=== PATIENT | female | born 1945 | race Two or more races ===

== ENCOUNTER 2023-08-20 13:38 | Inpatient (IN) | payer MEDICARE ==
[~2023-08-20] VITALS: Ht 154.9 cm; Wt 63.6 kg
[2023-08-20 15:34] LABS: HEMATOCRIT. 32.5 % (36.0-48.0); HEMOGLOBIN. 11.1 g/dL (12.0-16.0); LYMPHOCYTES % 8.1 % (20.0-50.0); MEAN CORPUSCULAR HEMOGLOBIN 29.8 pg (28.0-32.0); MEAN CORPUSCULAR VOLUME 87.7 fL (81.0-99.0); MEAN PLATELET VOLUME 8.9 fl (7.4-10.4); NEUTROPHILS % 79.9 % (40.0-76.0); PLATELET 88 x1000/uL (130-400); RED BLOOD CELL COUNT 3.71 mill/uL (4.2-5.4); WHITE BLOOD COUNT 5.6 x1000/uL (4.5-11.0)
[2023-08-20 16:04] LABS: ACETAMINOPHEN < 2 ug/mL (10-30); ALANINE AMINOTRANSFERASE 33 IU/L (10-49); ALBUMIN 4.3 g/dL (3.2-4.8); ASPARTATE AMINOTRANSFERASE 50 IU/L (<34); BILIRUBIN TOTAL 1.7 mg/dL (0.1-1.0); CALCIUM 9.1 mg/dL (8.7-10.4); CARBON DIOXIDE 27 mEq/L (21-32); CHLORIDE 102 mEq/L (98-107); CREATINE KINASE 1127 IU/L (34-145); CREATININE 0.8 mg/dL (0.6-1.0); GLUCOSE 149 mg/dL (70-105); POTASSIUM 3.2 mEq/L (3.5-5.1); PROTEIN TOTAL 6.7 g/dL (6.0-8.3); SODIUM 139 mEq/L (136-145); UREA NITROGEN BLOOD 15 mg/dL (9-23)
[2023-08-20] MEDS ORDERED: ACETAMINOPHEN 325MG TABLET PO ONE (16:15)
[2023-08-20 16:37] LABS: ETHANOL BLOOD < 10 mg/dL (<10)
[2023-08-20] MEDS ORDERED: SODIUM CHLORIDE 0.9% 1,000 ML IV ONE (17:15)
[2023-08-20] MEDS ORDERED: CEFTRIAXONE 1GM PREMIX 50 ML IV ONE (18:45)
[2023-08-20] MEDS ORDERED: ACETAMINOPHEN 325MG TABLET ONE (18:49)
[2023-08-21] VITALS (7 sets, daily range): BP systolic 117–144; BP diastolic 41–68; PULSE 82–96; RESP 23–35; TEMP 98.3–100.7
[2023-08-21] MEDS ORDERED: KETOROLAC 30MG/ML VIAL IV ONE (00:15)
[2023-08-21] MEDS ORDERED: ONDANSETRON HCL 4MG/2ML INJ IV ONE (00:15)
[2023-08-21] MEDS ORDERED: ACETAMINOPHEN 325MG TABLET PO PRN (00:30)
[2023-08-21] MEDS ORDERED: ONDANSETRON HCL 4MG/2ML INJ IV PRN (00:30)
[2023-08-21] MEDS ORDERED: DIPHENHYDRAMINE 50MG/ML VIAL IV PRN (00:30)
[2023-08-21] MEDS ORDERED: POTASSIUM CHLORIDE 20MEQ TABLET SR PO NR (00:30)
[2023-08-21] MEDS ORDERED: CEFTRIAXONE 2GM/50ML (ADDEASE) 50 ML IV SCH (02:00)
[2023-08-21] MEDS: SODIUM CHLORIDE 0.9% 1,000 ML IV SCH ×3 (02:41→16:30)
[2023-08-21 03:19] LABS: AMMONIA 22 uMol/L (<32)
[2023-08-21] MEDS: CEFTRIAXONE 2 G in DEXTROSE 5% WATER 50 ML IV SCH (06:24)
[2023-08-21] MEDS ORDERED: METF-873 PO (07:33)
[2023-08-21 07:39] LABS: HEMATOCRIT. 30.1 % (36.0-48.0); HEMOGLOBIN. 10.1 g/dL (12.0-16.0); MEAN CORPUSCULAR HEMOGLOBIN 29.8 pg (28.0-32.0); MEAN CORPUSCULAR HGB CONC 33.7 g/dL (31.0-37.0); MEAN CORPUSCULAR VOLUME 88.6 fL (81.0-99.0); PLATELET 77 x1000/uL (130-400); RED CELL DISTRIBUTION WIDTH 13.9 % (11.6-14.6)
[2023-08-21 07:53] LABS: DIFFERENTIAL COMMENT 1
[2023-08-21 08:05] LABS: ALANINE AMINOTRANSFERASE 34 IU/L (10-49); ALBUMIN 3.8 g/dL (3.2-4.8); ASPARTATE AMINOTRANSFERASE 53 IU/L (<34); BILIRUBIN TOTAL 0.9 mg/dL (0.1-1.0); CALCIUM 8.3 mg/dL (8.7-10.4); CARBON DIOXIDE 26 mEq/L (21-32); CHLORIDE 106 mEq/L (98-107); CREATININE 0.7 mg/dL (0.6-1.0); GLUCOSE 142 mg/dL (70-105); POTASSIUM 4.2 mEq/L (3.5-5.1); PROTEIN TOTAL 5.9 g/dL (6.0-8.3); SODIUM 140 mEq/L (136-145); UREA NITROGEN BLOOD 14 mg/dL (9-23)
[2023-08-21 08:41] LABS: HEPATITIS B SURFACE ANTIGEN NEGATIVE (Negative); HEPATITIS C AB NON REACTIVE (Neg) (Negative)
[2023-08-21] MEDS: ACETAMINOPHEN 325MG TABLET PO PRN ×2 (10:05→16:30)
[2023-08-21] MEDS ORDERED: AZITHROMYCIN 500 MG in DEXT 5% WATER 250 ML IV SCH (15:00)
[2023-08-21 17:35] LABS: CLARITY URINE CLEAR (CLEAR); COLOR URINE YELLOW (YELLOW); GLUCOSE URINE NEGATIVE (NEGATIVE); KETONES URINE NEGATIVE (NEGATIVE); PROTEIN URINE 2+ (NEGATIVE); SPECIFIC GRAVITY URINE >=1.030 (1.005-1.030)
[2023-08-21 17:36] LABS: LEUKOCYTE ESTERASE URINE NEGATIVE (NEGATIVE); NITRITE URINE NEGATIVE (NEGATIVE); OCCULT BLOOD URINE 2+ (NEGATIVE); UROBILINOGEN URINE 0.2 E.U./dL (0.2-1.0)
[2023-08-21 17:43] LABS: BACTERIA URINE 2+; SQUAMOUS EPITHELIAL CELL URINE FEW /lpf (RARE/1+)
[2023-08-21 17:45] LABS: *AMPHETAMINES SCREEN URINE NEGATIVE (NEGATIVE); *BARBITURATES SCREEN URINE NEGATIVE (NEGATIVE); *BENZODIAZEPINES SCREEN URINE NEGATIVE (NEGATIVE); *COCAINE SCREEN URINE NEGATIVE (NEGATIVE); CANNABINOID URINE SCREEN NEGATIVE (NEGATIVE); ECSTASY MDMA SCREEN URINE NEGATIVE (NEGATIVE); METHADONE URINE SCREEN Neg (NEGATIVE); OPIATES URINE SCREEN NEGATIVE (NEGATIVE); PHENCYCLIDINE URINE SCREEN NEGATIVE (NEGATIVE); WBC URINE 0-2 /hpf (0-2)
[2023-08-22] VITALS (8 sets, daily range): BP systolic 110–155; BP diastolic 60–106; PULSE 75–115; RESP 20–30; TEMP 97.6–103.3; O2SAT 94–98
[2023-08-22] MEDS: SODIUM CHLORIDE 0.9% 1,000 ML IV SCH ×3 (00:15→14:46)
[2023-08-22] MEDS: ACETAMINOPHEN 325MG TABLET PO PRN ×2 (00:16→05:36)
[2023-08-22] MEDS: CEFTRIAXONE 2 G in DEXTROSE 5% WATER 50 ML IV SCH (05:44)
[2023-08-22] MEDS: AZITHROMYCIN 500 MG TABLET PO SCH (09:10)
[2023-08-22 12:01] LABS: PLATELET ESTIMATE DECREASED
[2023-08-22] MEDS ORDERED: IPRATROPIUM/ALBUTEROL 0.5-3(2.5)MG/3ML NEB HHN PRN (14:15)
[2023-08-22 14:24] LABS: BG BASE EXCESS -0.7 mmol/L (-2.0-2.0); BG CARBOXYHEMOGLOBIN 0.4 % (0.5-1.5); BG HCO3 ACT 22.3 mmol/L (22.0-26.0); BG METHEMOGLOBIN 0.1 % (0.0-1.5); BG OXYHEMOGLOBIN 95.5 % (94.0-97.0); BG PCO2 31.6 mmHg (35.0-45.0); BG PH 7.466 (7.350-7.450); BG PO2 78.1 mmHg (75.0-100.0); BG SAMPLE SITE RIGHT RADIAL; BG TOTAL HEMOGLOBIN 12.1 g/dL (12.0-18.0); BG VENT MODE NASAL CANNULA
[2023-08-22] MEDS ORDERED: METHYLPREDNISOLONE SOD SUCC 125MG/2ML (ACT-O-VIAL) IV NR (14:30)
[2023-08-22] MEDS: IPRATROPIUM/ALBUTEROL 0.5-3(2.5)MG/3ML NEB HHN SCH (21:12)
[2023-08-22] MEDS: METHYLPREDNISOLONE SOD SUCC 125MG/2ML (ACT-O-VIAL) IV SCH (22:02)
[2023-08-23] VITALS (7 sets, daily range): BP systolic 100–129; BP diastolic 72–94; PULSE 71–106; RESP 16–23; TEMP 97–99.2
[2023-08-23] MEDS: IPRATROPIUM/ALBUTEROL 0.5-3(2.5)MG/3ML NEB HHN SCH (02:00)
[2023-08-23] MEDS: CEFTRIAXONE 2 G in DEXTROSE 5% WATER 50 ML IV SCH (05:22)
[2023-08-23] MEDS: METHYLPREDNISOLONE SOD SUCC 125MG/2ML (ACT-O-VIAL) IV SCH ×2 (05:22→13:43)
[2023-08-23 06:00] LABS: HEMATOCRIT. 27.5 % (36.0-48.0); HEMOGLOBIN. 9.6 g/dL (12.0-16.0); MEAN CORPUSCULAR HEMOGLOBIN 29.6 pg (28.0-32.0); MEAN CORPUSCULAR VOLUME 84.7 fL (81.0-99.0); MEAN PLATELET VOLUME 9.2 fl (7.4-10.4); PLATELET 77 x1000/uL (130-400); RED BLOOD CELL COUNT 3.25 mill/uL (4.2-5.4); RED CELL DISTRIBUTION WIDTH 13.7 % (11.6-14.6); WHITE BLOOD COUNT 2.9 x1000/uL (4.5-11.0)
[2023-08-23 07:16] LABS: DIFFERENTIAL COMMENT 1
[2023-08-23] MEDS ORDERED: ENOXAPARIN 30MG/0.3ML SYR SUBCUT SCH (09:00)
[2023-08-23] MEDS: SODIUM CHLORIDE 0.9% 1,000 ML IV SCH (09:00)
[2023-08-23] MEDS: AZITHROMYCIN 500 MG TABLET PO SCH (09:08)
[2023-08-23 09:50] LABS: ALANINE AMINOTRANSFERASE 83 IU/L (10-49); ALBUMIN 3.6 g/dL (3.2-4.8); ASPARTATE AMINOTRANSFERASE 106 IU/L (<34); BILIRUBIN TOTAL 0.4 mg/dL (0.1-1.0); CALCIUM 8.5 mg/dL (8.7-10.4); CARBON DIOXIDE 28 mEq/L (21-32); CHLORIDE 98 mEq/L (98-107); CREATININE 0.7 mg/dL (0.6-1.0); GLUCOSE 259 mg/dL (70-105); PHOSPHORUS 1.8 mg/dL (2.5-4.9); POTASSIUM 3.4 mEq/L (3.5-5.1); PROTEIN TOTAL 5.2 g/dL (6.0-8.3); SODIUM 135 mEq/L (136-145); UREA NITROGEN BLOOD 11 mg/dL (9-23)
[2023-08-23] MEDS ORDERED: DEXTROSE 50% WATER 50ML SYRINGE IV PRN (13:00)
[2023-08-23] MEDS ORDERED: POTASSIUM CHLORIDE 20MEQ TABLET SR PO NR (14:00)
[2023-08-23] MEDS: ACETAMINOPHEN 325MG TABLET PO PRN (14:42)
[2023-08-23] MEDS ORDERED: POTASSIUM PHOS,M-BASIC-D-BASIC 30 MMOL in DEXT 5% WATER 500 ML IV NR (15:00)
[2023-08-23] MEDS ORDERED: MAGNESIUM 1 G PREMIX 100 ML IV NR (15:00)
[2023-08-23 17:15] LABS: PLATELET ESTIMATE DECREASED
[2023-08-23] MEDS: INSULIN LISPRO 100 UNITS/ML SUBCUT SCH ×2 (18:13→21:00)
[2023-08-23] MEDS: BLOOD SUGAR DIAGNOSTIC STRIP TEST SCH (21:53)
[2023-08-23] MEDS: METHYLPREDNISOLONE SOD SUCC 40MG/ML (ACT-O-VIAL) IV SCH (23:45)
[2023-08-24] VITALS: BP 106/75; PULSE 74; RESP 16; TEMP 98.6
[2023-08-24 04:00] VITALS: BP 121/77; PULSE 75; RESP 19; TEMP 98.6
[2023-08-24] MEDS: CEFTRIAXONE 2 G in DEXTROSE 5% WATER 50 ML IV SCH (06:29)
[2023-08-24] MEDS: METHYLPREDNISOLONE SOD SUCC 40MG/ML (ACT-O-VIAL) IV SCH ×2 (06:29→20:35)
[2023-08-24] MEDS: BLOOD SUGAR DIAGNOSTIC STRIP TEST SCH ×4 (06:42→20:35)
[2023-08-24] MEDS: INSULIN LISPRO 100 UNITS/ML SUBCUT SCH ×4 (07:20→20:38)
[2023-08-24 08:00] VITALS: BP 115/54; PULSE 83; RESP 20; TEMP 99.2
[2023-08-24 08:04] LABS: CALCIUM 8.4 mg/dL (8.7-10.4); CARBON DIOXIDE 26 mEq/L (21-32); CHLORIDE 103 mEq/L (98-107); CREATININE 0.5 mg/dL (0.6-1.0); GLUCOSE 195 mg/dL (70-105); PHOSPHORUS 2.2 mg/dL (2.5-4.9); POTASSIUM 4.3 mEq/L (3.5-5.1); SODIUM 138 mEq/L (136-145); UREA NITROGEN BLOOD 19 mg/dL (9-23)
[2023-08-24] MEDS: AZITHROMYCIN 500 MG TABLET PO SCH (09:00)
[2023-08-24 12:00] VITALS: BP 157/90; PULSE 81; RESP 26; TEMP 97.9
[2023-08-24] MEDS ORDERED: CLON2TAB21 PO (13:00)
[2023-08-24] MEDS: METFORMIN HCL 500MG TABLET PO SCH (18:06)
[2023-08-24 20:04] VITALS: BP 135/64; PULSE 79; RESP 22; TEMP 97.8
[2023-08-24 20:24] VITALS: BP 122/57; PULSE 76; RESP 22; TEMP 97.7
[2023-08-24] MEDS: SODIUM CHLORIDE 0.9% 1,000 ML IV SCH (22:18)
[2023-08-25 00:05] VITALS: BP 150/70; PULSE 74; RESP 24; TEMP 98.7
[2023-08-25 04:00] VITALS: BP 141/67; PULSE 68; RESP 18; TEMP 98.8
[2023-08-25] MEDS: CEFTRIAXONE 2 G in DEXTROSE 5% WATER 50 ML IV SCH (06:15)
[2023-08-25] MEDS: SODIUM CHLORIDE 0.9% 1,000 ML IV SCH ×2 (06:16→13:04)
[2023-08-25] MEDS: BLOOD SUGAR DIAGNOSTIC STRIP TEST SCH ×4 (06:24→20:03)
[2023-08-25 08:00] VITALS: BP 148/70; PULSE 72; RESP 22; TEMP 98.1
[2023-08-25] MEDS: METHYLPREDNISOLONE SOD SUCC 40MG/ML (ACT-O-VIAL) IV SCH ×2 (08:34→20:07)
[2023-08-25] MEDS: AZITHROMYCIN 500 MG TABLET PO SCH (08:34)
[2023-08-25] MEDS: METFORMIN HCL 500MG TABLET PO SCH ×2 (08:34→18:05)
[2023-08-25] MEDS: INSULIN LISPRO 100 UNITS/ML SUBCUT SCH ×4 (08:35→20:07)
[2023-08-25 11:31] LABS: BASOPHILS % 0.9 % (0.0-2.0); HEMATOCRIT. 29.8 % (36.0-48.0); HEMOGLOBIN. 9.9 g/dL (12.0-16.0); LYMPHOCYTES % 15.3 % (20.0-50.0); MEAN CORPUSCULAR HEMOGLOBIN 29.3 pg (28.0-32.0); MEAN CORPUSCULAR HGB CONC 33.3 g/dL (31.0-37.0); MONOCYTES % 8.2 % (2.0-8.0); NEUTROPHILS % 75.6 % (40.0-76.0); PLATELET 71 x1000/uL (130-400); RED BLOOD CELL COUNT 3.39 mill/uL (4.2-5.4); RED CELL DISTRIBUTION WIDTH 14.4 % (11.6-14.6); WHITE BLOOD COUNT 3.2 x1000/uL (4.5-11.0)
[2023-08-25 11:45] LABS: ALANINE AMINOTRANSFERASE 84 IU/L (10-49); ALBUMIN 3.4 g/dL (3.2-4.8); ASPARTATE AMINOTRANSFERASE 45 IU/L (<34); BILIRUBIN TOTAL 0.3 mg/dL (0.1-1.0); CALCIUM 8.7 mg/dL (8.7-10.4); CARBON DIOXIDE 25 mEq/L (21-32); CHLORIDE 102 mEq/L (98-107); CREATININE 0.7 mg/dL (0.6-1.0); GLUCOSE 273 mg/dL (70-105); PROTEIN TOTAL 4.8 g/dL (6.0-8.3); SODIUM 137 mEq/L (136-145); UREA NITROGEN BLOOD 23 mg/dL (9-23)
[2023-08-25 12:00] VITALS: BP 150/81; PULSE 84; RESP 17; TEMP 98.4
[2023-08-25 16:00] VITALS: BP 154/79; PULSE 78; RESP 18; TEMP 98.5
[2023-08-25] MEDS ORDERED: GUAIFENESIN-DM 200MG-20MG/10ML UDC PO PRN (17:30)
[2023-08-25] MEDS ORDERED: BENZONATATE 100MG CAPSULE PO PRN (17:30)
[2023-08-25 19:42] LABS: VITAMIN B12 SERUM 1948 pg/mL (211-911)
[2023-08-25 20:00] VITALS: BP 156/84; PULSE 86; RESP 17; TEMP 98.6
[2023-08-26] VITALS: BP 130/80; PULSE 79; RESP 27; TEMP 98
[2023-08-26 04:00] VITALS: BP 165/77; PULSE 76; RESP 26; TEMP 98.6
[2023-08-26] MEDS: CEFTRIAXONE 2 G in DEXTROSE 5% WATER 50 ML IV SCH (05:25)
[2023-08-26] MEDS: SODIUM CHLORIDE 0.9% 1,000 ML IV SCH (05:25)
[2023-08-26] MEDS: BLOOD SUGAR DIAGNOSTIC STRIP TEST SCH ×2 (06:50→11:50)
[2023-08-26 08:00] VITALS: BP 157/73; PULSE 72; RESP 24; TEMP 97.7
[2023-08-26] MEDS: METFORMIN HCL 500MG TABLET PO SCH (08:59)
[2023-08-26] MEDS: INSULIN LISPRO 100 UNITS/ML SUBCUT SCH ×2 (09:01→13:13)
[2023-08-26] MEDS: METHYLPREDNISOLONE SOD SUCC 40MG/ML (ACT-O-VIAL) IV SCH (09:30)
[2023-08-26 12:00] VITALS: BP 119/65; PULSE 82; RESP 21; TEMP 97.5
[2023-08-26] MEDS ORDERED: LEVO750T68 PO (14:16)
[2023-08-26 15:49] VITALS: BP 152/76; PULSE 74; TEMP 98.5; O2SAT 98
== END 2023-08-26 16:30 | disposition home or self-care (01) | DRG 871 ==
LOC: ER 13:38 → MICUSO 18:44 → EDBEDREQTM 18:48 → EDBEDREQ 18:48 → 3WST 08-21 01:06
PROVIDERS: ADMIT Internal Medicine; ATTEND Internal Medicine
PROC: 4A00X4Z Measurement of Central Nervous Electrical Activity, External Approach (ICD-10-PCS; principal; 2023-08-26)
DX: A41.9 Sepsis, unspecified organism (principal); G93.41 Metabolic encephalopathy; J96.01 Acute respiratory failure with hypoxia; J18.9 Pneumonia, unspecified organism; E87.3 Alkalosis; M62.82 Rhabdomyolysis; D64.9 Anemia, unspecified; Z20.822 Contact with and (suspected) exposure to COVID-19; D69.6 Thrombocytopenia, unspecified; E83.39 Other disorders of phosphorus metabolism; E87.6 Hypokalemia; E11.42 Type 2 diabetes mellitus with diabetic polyneuropathy; R26.9 Unspecified abnormalities of gait and mobility; Z79.84 Long term (current) use of oral hypoglycemic drugs; Z83.3 Family history of diabetes mellitus
CPT/HCPCS: 36415; 36600; 71045; 74176; 80048; 80053; 80305; 80307; 80320; 80329; 81003; 82140; 82375; 82550; 82607; 82805; 82962; 83036; 83735; 84100; 84145; 84443; 85025; 85379; 86705; 87015; 87045; 87340; 87426; 87427; 87449; 87804; 89055; 93005; 93306; 93970; 94640; 95816; 97161; 97165; 97535; 99285; C1893; C9803; J0456; J0696; J1650; J1815; J1885; J2405; J2920; J2930; J3475; J3490; J7030; J7060; G0480